=== PATIENT | male | born 1960 | race Caucasian/White ===

== ENCOUNTER 2021-09-21 14:13 | Outpatient (CLI) | payer OTHER, SELFPAY ==
--- NOTE | 2021-09-21 14:28 | VDLE_ITS ---
Reason For Study: Pain Procedure LEFT This is a venous duplex using B-mode, color GSV is normal. flow and spectral Doppler. CFV is compressible, spontaneous, phasic, Exam performed in department. competent, and demonstrates normal A preliminary report was called and/or faxed augmentation. to [facility]. FV is compressible, spontaneous, phasic, competent and demonstrates normal augmentation. POP V is compressible, spontaneous, phasic, competent and demonstrates normal augmentation. T/P Trunk is compressible. PTV is compressible. LT PerV is compressible. VL/Venous Duplex US, Unilateral Interpretation Summary There is no evidence of left lower extremity deep vein thrombosis. Left great s aphenous vein appears patent and compressible segmentally. Ordering Physician: Alejandro Hansen Performed By: Ana Doherty RVT
== END 2021-09-21 23:59 | disposition home or self-care (01) ==
PROVIDERS: Visit Provider Physician Assistant Surgical
DX: M79.662 Pain in left lower leg (principal)
CPT/HCPCS: 93971